=== PATIENT | female | born 1995 | race Caucasian/White ===

== ENCOUNTER 2017-07-05 14:33 | Day surgery (SDC) | payer BC ==
[2017-07-03 10:50] VITALS: BMI 23.0
[2017-07-05] MEDS ORDERED: ROPIVACAINE HCL 0.5% 30ML VIAL ONE ×2 (15:23→16:33)
[2017-07-05] MEDS ORDERED: PROPOFOL 20 ML ONE ×2 (15:59)
[2017-07-05] MEDS ORDERED: SUCCINYLCHOLINE CHLORIDE 200 MG/10 ML VIAL ONE (15:59)
[2017-07-05] MEDS ORDERED: MIDAZOLAM HCL 2 MG/2 ML SINGLE DOSE VIAL ONE (15:59)
[2017-07-05] MEDS ORDERED: LIDOCAINE HCL 2% 100 MG/5 ML DISP.SYRIN ONE (16:17)
[2017-07-05] MEDS ORDERED: ceFAZolin SODIUM 1 GM VIAL ONE (16:21)
[2017-07-05] MEDS ORDERED: DEXAMETHASONE SOD PHOSPHATE 4 MG/1 ML VIAL ONE (16:21)
[2017-07-05] MEDS ORDERED: ONDANSETRON 4 MG/2 ML VIAL ONE (16:21)
[2017-07-05] MEDS ORDERED: ONDANSETRON 4 MG/2 ML VIAL IVPUSH PRN (17:03)
[2017-07-05] MEDS ORDERED: oxyCODONE HCL 5 MG TABLET PO PRN (17:03)
[2017-07-05] MEDS ORDERED: LACTATED RINGERS SOLUTION 1,000 ML IV SCH (17:15)
[2017-07-05 17:51] VITALS: PULSE 60; TEMP 97.4
[2017-07-05 18:19] VITALS: BP 116/76
--- NOTE | 2017-07-06 11:04 | OP ---
DATE OF OPERATION: 07/05/2017 PREOPERATIVE DIAGNOSES: 1. Right wrist synovitis. 2. Right wrist dorsal ganglion cyst. OPERATIVE PROCEDURES: 1. Right wrist operative arthroscopy with radiocarpal debridement. 2. Right wrist mass excision. SURGEON: Jhonathan Hardy MD ANESTHESIA: General. COMPLICATIONS: None. ESTIMATED BLOOD LOSS: Minimal. INDICATIONS FOR PROCEDURE: The patient is a 21-year-old female with the above finding indicated for operative treatment. Risks, benefits and alternatives were discussed with the patient at length. Proper informed consent was obtained. PROCEDURE: After proper identification of the patient and correct operative site, the patient was brought to the operating room and placed supine on the operating room table. All prominences were well padded. General anesthesia as well as intravenous antibiotics was provided by the anesthesiologist . The right upper extremity was prepped and draped in the usual sterile fashion. Wrist arthroscopy tower was used with 10 pounds of in-line traction with all points of contact well padded and finger traps used on the fingers. The 3-4 and 4-5 portals were used. Both portals were made with skin incision only and blunt dissection down to the joint capsule. A 2.7-mm were used in combination with a 2.0 shaver. The radiocarpal joint was observed and found to have no articular defects of the radius, scaphoid, lunate or triquetrum. Scapholunate and lunotriquetral ligaments were intact. Volar radiocarpal ligaments were intact. TFCC was intact. Significant dorsal synovitis was noted and this was debrided with the shaver. The stalk of the ganglion cyst was noted and this was excised, along with the base of the ganglion cyst. Cystic fluid was also elicited. The mass was also completely decompressed outwardly on clinical evaluation. The wound was irrigated with saline and repaired with 5-0 nylon suture. Sterile dressings were applied. The patient was reversed from anesthesia and brought to the recovery room in stable condition. She tolerated the procedure well. JOHNATHAN HARDY M.D. [place]/[id number]
== END 2017-07-05 18:17 | disposition home or self-care (01) ==
LOC: FASU 14:33
PROVIDERS: ATTEND Orthopaedic Surgery Hand Surgery
PROC: 0RBN4ZZ Excision of Right Wrist Joint, Percutaneous Endoscopic Approach (ICD-10-PCS; 2017-07-05)
PROC: 0RBN0ZZ Excision of Right Wrist Joint, Open Approach (ICD-10-PCS; principal; 2017-07-05 16:31)
DX: M67.431 Ganglion, right wrist (principal); M65.9 Synovitis and tenosynovitis, unspecified
CPT/HCPCS: 84703